=== PATIENT | female | born 1950 | race African-American/Black ===

== ENCOUNTER 2019-01-19 12:40 | Emergency (ER) | payer MEDICARE, SELFPAY ==
[~2019-01-19] VITALS: Ht 154.9 cm; Wt 135.6 kg
[~2019-01-19 12:40] MED LIST: ALBU2.5V8 INH; ALPR0.25 PO; ASPI325T8 PO; BUDE10.2 IH; ESOM40CA PO; GABA300C18 PO; INSU100I13 SQ; INSU100I27 SQ; INSU100V31 SQ; NAPR-683 PO
[2019-01-19] MEDS ORDERED: fentaNYL PF VIAL 100 MCG/2 ML VIAL IV ONE (13:15)
[2019-01-19] MEDS ORDERED: ONDANSETRON PF 4 MG/2 ML VIAL. IV ONE (13:15)
[2019-01-19] MEDS ORDERED: IV NORMAL SALINE 500ML BAG 500 ML IV ONE (13:15)
--- NOTE | 2019-01-19 13:21 | PHYS DOC ---
Past Medical History Past Medical History: Anxiety, Asthma, Depression, Diabetes-Type II, Kidney Stone, [place], Other Additional Past Medical Histor: paranoia, obesity, phobias, neuropathy Past Surgical History: Hysterectomy, Other Additional Past Surgical Histo: bilat knee cart. removal, cardiac stents Additional Information: 1 PACK/DAY Alcohol Use: None Drug Use: None Adult General Chief Complaint Chief Complaint: FLANK PAIN HPI HPI Patient is a 68 year old female who presents with complaining of right flank pain. Patient complaining of constant and sudden onset of right flank pain for the last 3 days that getting worse with movement. Patient rated her pain 10 over 10 and complaining of hematuria without urinary frequency and dysuria. Patient d enies fever and chills, nausea and vomiting, diarrhea and constipation, history of the same pain. Patient took [id number] Advil without improvement of her pain. Patient had history of kidney stone 1 while ago. Review of Systems Review of Systems Constitutional: Denies fever or chills [] Eyes: Denies change in visual acuity, redness, or eye pain [] HENT: Denies nasal congestion or sore throat [] Respiratory: Denies cough or shortness of breath [] Cardiovascular: No additional information not addressed in HPI [] GI: Denies abdominal pain, nausea, vomiting, bloody stools or diarrhea [] : Denies dysuria, reports flank pain and hematuria [] Musculoskeletal: Denies back pain or joint pain [] Integument: Denies rash or skin lesions [] Neurologic: Denies headache, focal weakness or sensory changes [] Endocrine: Denies polyuria or polydipsia [] All other systems were reviewed and found to be within normal limits, except as documented in this note. Current Medications Current Medications Current Medications Medications (Trade) Dose Ordered Sig/Rayne Start Time Stop Time Status Last Admin Dose Admin Ceftriaxone Sodium (Rocephin) 1 gm 1X ONCE 01/19/19 15:45 01/19/19 15:47 DC 01/19/19 15:56 1 GM Fentanyl Citrate (Fentanyl 2ml Vial) 50 mcg 1X ONCE 01/19/19 13:15 01/19/19 13:19 DC 01/19/19 15:18 50 MCG Lorazepam (Ativan) 1 mg 1X ONCE 01/19/19 14:30 01/19/19 14:31 DC 01/19/19 14:44 1 MG Ondansetron HCl (Zofran) 4 mg 1X ONCE 01/19/19 13:15 01/19/19 13:19 DC 01/19/19 15:16 4 MG Sodium Chloride 500 ml @ 500 mls/hr 1X ONCE 01/19/19 13:15 01/19/19 14:14 DC 01/19/19 15:20 500 MLS/HR Allergies Allergies Allergies Coded Allergies Type Severity Reaction Last Updated Verified BETH Inhibitors Allergy Severe throat swelling 06/22/16 Yes Penicillins Allergy Intermediate rash (per MD) 01/19/19 Yes Physical Exam Physical Exam Constitutional: Well developed, well nourished, mild distress, non-toxic appearance, morbidly obese. [] HENT: Normocephalic, atraumatic, oropharynx moist. Eyes: PERRLA, EOMI, conjunctiva normal, no discharge. [] Neck: Normal range of motion, no tenderness, supple, no stridor. [] Cardiovascular:Heart rate regular rhythm, no murmur [] Lungs & Thorax: Bilateral breath sounds clear to auscultation [] Abdomen: Bowel sounds normal, soft, no tenderness, no masses, no pulsatile masses. [] Skin: Warm, dry, no erythema, no rash. [] Back: No tenderness, no CVA tenderness. [] Extremities: No tenderness, no cyanosis, no clubbing, ROM intact, bilateral lower extremity 2+ edema. [] Neurologic: Alert and oriented X 3, normal motor function, normal sensory func tion, no focal deficits noted. [] Psychologic: Affect normal, judgement normal, mood normal. [] Current Patient Data Vital Signs Vital Signs Date Time Temp Pulse Resp B/P (MAP) Pulse Ox O2 Delivery O2 Flow Rate FiO2 01/19/19 15:58 72 20 145/64 (91) 97 Room Air 01/19/19 13:05 98.4 98.4 Lab Values Laboratory Tests Test 01/19/19 13:00 01/19/19 13:40 Urine Collection Type Void Urine Color Yellow Urine Clarity Clear Urine pH 6.0 Urine Specific [place] 1.010 Urine Protein Negative mg/dL (NEG-TRACE) Urine Glucose (UA) Negative mg/dL (NEG) Urine Ketones (Stick) Negative mg/dL (NEG) Urine Blood Moderate (NEG) Urine Nitrite Negative (NEG) Urine Bilirubin Negative (NEG) Urine Urobilinogen Dipstick 0.2 mg/dL (0.2 mg/dL) Urine Leukocyte Esterase Moderate (NEG) Urine RBC Occ /HPF (0-2) Urine WBC 11-20 /HPF (0-4) Urine Squamous Epithelial Cells Occ /LPF Urine Bacteria Many /HPF (0-FEW) White Blood Count 11.2 x10^3/uL (4.0-11.0) H Red Blood Count 4.58 x10^6/uL (3.50-5.40) Hemoglobin 12.4 g/dL (12.0-15.5) Hematocrit 38.6 % (36.0-47.0) Mean Corpuscular Volume 84 fL (79-100) Mean Corpuscular Hemoglobin 27 pg (25-35) Mean Corpuscular Hemoglobin Concent 32 g/dL (31-37) Red Cell Distribution Width 17.9 % (11.5-14.5) H Platelet Count 155 x10^3/uL (140-400) Neutrophils (%) (Auto) 64 % (31-73) Lymphocytes (%) (Auto) 26 % (24-48) Monocytes (%) (Auto) 6 % (0-9) Eosinophils (%) (Auto) 3 % (0-3) Basophils (%) (Auto) 1 % (0-3) Neutrophils # (Auto) 7.2 x10^3uL (1.8-7.7) Lymphocytes # (Auto) 2.9 x10^3/uL (1.0-4.8) Monocytes # (Auto) 0.7 x10^3/uL (0.0-1.1) Eosinophils # (Auto) 0.3 x10^3/uL (0.0-0.7) Basophils # (Auto) 0.1 x10^3/uL (0.0-0.2) Sodium Level 139 mmol/L (136-145) Potassium Level 3.8 mmol/L (3.5-5.1) Chloride Level 103 mmol/L (98-107) Carbon Dioxide Level 25 mmol/L (21-32) Anion Gap 11 (6-14) Blood Urea Nitrogen 9 mg/dL (7-20) Creatinine 0.7 mg/dL (0.6-1.0) Estimated GFR (Cockcroft-Gault) 100.4 BUN/Creatinine Ratio 13 (6-20) Glucose Level 131 mg/dL (70-99) H Calcium Level 9.2 mg/dL (8.5-10.1) Total Bilirubin 0.2 mg/dL (0.2-1.0) Aspartate Amino Transferase (AST) 13 U/L (15-37) L Alanine Aminotransferase (ALT) 9 U/L (14-59) L Alkaline Phosphatase 88 U/L (46-116) Total Protein 8.3 g/dL (6.4-8.2) H Albumin 3.3 g/dL (3.4-5.0) L Albumin/Globulin Ratio 0.7 (1.0-1.7) L Lipase 70 U/L (73-393) L Laboratory Tests 01/19/19 13:40 Laboratory Tests 01/19/19 13:40 EKG EKG [] Radiology/Procedures Radiology/Procedures [facility] [address] [place], [place] [id number] IMAGING REPORT Signed PATIENT: KATHI MIXON ACCOUNT: [id number] : 1950 LOCATION: ER AGE: 68 SEX: F EXAM STATUS: REG ER ORD. PHYSICIAN: SHEELA JOHANSEN MD REASON: right flank pain PROCEDURE: CT ABDOMEN PELVIS WO CONTRAST Examination: CT of the abdomen pelvis without contrast HISTORY: History of right flank pain COMPARISON: 06/22/2016 TECHNIQUE: Axial CT images of the abdomen pelvis were performed without contrast. sagittal reformats are performed Exposure: One or more of the following individualized dose reduction techniques were utilized for this examination: 1. Automated exposure control 2. Adjustment of the mA and/or kV according to patient size 3. Use of iterative reconstruction technique FINDINGS: Minimal bibasilar lung airspace opacities likely atelectasis No evidence of free air identified in the abdomen The evaluation of the solid organs is limited due to lack of IV contrast. The evaluation of bowel is limited due to lack of oral contrast. The visualized noncontrasted liver, spleen, adrenals grossly appears unremarkable. The gallbladder is mildly distended. The stomach is mildly distended. The visualized pancreas grossly appears unremarkable. The small bowel is nondilated. Feces and gas noted in the colon. Multiple colonic diverticulosis identified. The appendix is not evident Multiple intrarenal collecting system calculi identified in the left kidney with the largest measuring 9 mm. Probably punctate 3 mm identified distal calculus right kidney. No evidence of hydronephrosis or hydroureter identified. The urinary bladder is mildly distended. Moderate degenerative changes throughout the lumbar spine. IMPRESSION: 1. Bilateral nephrolithiasis. No hydronephrosis. 2. Colonic diverticulosis. Electronically signed by: Feliberto Bergeron MD (01/19/2019 3:25 PM) [place] [id number] DICTATED and SIGNED BY: FELIBERTO BERGERON MD DATE: 01/19/19 1525 Course & Med Decision Making Course & Med Decision Making Pertinent Labs and Imaging studies reviewed. (See chart for details) Evaluation of patient in ER showed 68-year-old female patient with complaining of right flank pain for 3 days. Patient had morbid obesity without CVA tenderness. Labs showed UTI. She had anxiety before having CT of abdomen and Ativan was given. CT of abdomen and pelvis showed nephrolithiasis without ureterolithiasis. Patient treated with IV fluid, fentanyl, Ativan with improvement of her condition. I've spoken with the patient and/or caregivers. I've explained the patient's condition, diagnosis and treatment plan based on information available to me at this time. I've answered the patient's and/or caregivers questions and addressed any concerns. The patient and/or caregivers have a good understanding the patient's diagnosis, condition and treatment plan as can be expected at this point. Vital signs have been stabilized. The patient's condition is stable for discharge from the emergency department. The patient will pursue further outpatient evaluation with her primary care provider or other designated consulting physician as outlined in the discharge instructions. Patient and/or caregivers are agreeable to this plan of care and follow-up instructions have been explained in detail. The patient and/or careg sharee have received these instructions in written format and expressed understanding of these discharge instructions. The patient and her caregivers are aware that if any significant change in condition or worsening of symptoms should prompt him to immediately return to this of the closest emergency department. If an emergent department is not readily available I would encourage him to call 911. Debra Disclaimer Debra Disclaimer This electronic medical record was generated, in whole or in part, using a voice recognition dictation system. Departure Departure Impression: Primary Impression: Urinary tract infection Additional Impressions: Right flank pain Nephrolithiasis Morbid obesity with BMI of 50.0-59.9, adult Anxiety Disposition: 01 HOME, SELF-CARE Condition: IMPROVED Referrals: ARIAN GHOSH MD (PCP) Patient Instructions: Flank Pain, Urinary Tract Infection Additional Instructions: Drink plenty of liquids Follow-up with your primary care physician in 3-5 days Return to ER if not getting better Scripts Ciprofloxacin Hcl (CIPRO) 250 Mg Tablet 1 TAB PO BID for infection, #14 TAB Prov: SHEELA JOHANSEN MD 01/19/19 Insulin Aspart (NOVOLOG) 100 Unit/1 Ml Vial 25 UNIT SQ TIDAC, #1 VIAL Prov: SHEELA JOHANSEN MD 01/19/19 Hydrocodone/Apap 5-325 (NORCO 5-325 TABLET) 1 Each Tablet 1 TAB PO PRN Q6HRS PRN for PAIN, #10 TAB 0 Refills Prov: SHEELA JOHANSEN MD 01/19/19 Problem Qualifiers Primary Impression: Urinary tract infection Urinary tract infection type: acute cystitis Hematuria presence: without hematuria Qualified Codes: N30.00 - Acute cystitis without hematuria SHEELA JOHANSEN MD January 19, 2019 13:21
[2019-01-19 13:22] LABS: BILIRUBIN,URINE NEGATIVE (NEG); CLARITY,URINE CLEAR; COLOR,URINE YELLOW; NITRITE,URINE NEGATIVE (NEG); PROTEIN,URINE NEGATIVE (NEG-TRACE); UROBILINOGEN,URINE 0.2 mg/dL (0.2 mg/dL)
[2019-01-19 13:31] LABS: RBC,URINE OCC /HPF (0-2)
[2019-01-19 13:32] LABS: BACTERIA,URINE MANY /HPF (0-FEW); SQUAMOUS EPITHELIAL CELL,UR OCC /LPF
[2019-01-19 13:48] LABS: BASO # 0.1 x10^3/uL (0.0-0.2); BASO % 1 % (0-3); EOS # 0.3 x10^3/uL (0.0-0.7); EOS % 3 % (0-3); HEMATOCRIT 38.6 % (36.0-47.0); HEMOGLOBIN 12.4 g/dL (12.0-15.5); LYMPH # 2.9 x10^3/uL (1.0-4.8); LYMPH % 26 % (24-48); MEAN CORPUSCULAR HEMOGLOBIN 27 pg (25-35); MEAN CORPUSCULAR HGB CONC 32 g/dL (31-37); MEAN CORPUSCULAR VOLUME 84 fL (79-100); MONO # 0.7 x10^3/uL (0.0-1.1); MONO % 6 % (0-9); NEUT # 7.2 x10^3uL (1.8-7.7); NEUT % 64 % (31-73); PLATELET COUNT 155 x10^3/uL (140-400); RED BLOOD COUNT 4.58 x10^6/uL (3.50-5.40); RED CELL DISTRIBUTION WIDTH 17.9 % (11.5-14.5); WHITE BLOOD COUNT 11.2 x10^3/uL (4.0-11.0)
[2019-01-19 14:03] LABS: CALCIUM 9.2 mg/dL (8.5-10.1); CREATININE 0.7 mg/dL (0.6-1.0); GFR 100.4; POTASSIUM 3.8 mmol/L (3.5-5.1)
[2019-01-19 14:09] LABS: ALBUMIN 3.3 g/dL (3.4-5.0); ALBUMIN/GLOBULIN RATIO 0.7 (1.0-1.7); TOTAL BILIRUBIN 0.2 mg/dL (0.2-1.0); TOTAL PROTEIN 8.3 g/dL (6.4-8.2)
--- NOTE | 2019-01-19 15:28 | RAD ---
Examination: CT of the abdomen pelvis without contrast HISTORY: History of right flank pain COMPARISON: 06/22/2016 TECHNIQUE: Axial CT images of the abdomen pelvis were performed without contrast. sagittal reformats are performed Exposure: One or more of the following individualized dose reduction techniques were utilized for this examination: 1. Automated exposure control 2. Adjustment of the mA and/or kV according to patient size 3. Use of iterative reconstruction technique FINDINGS: Minimal bibasilar lung airspace opacities likely atelectasis No evidence of free air identified in the abdomen The evaluation of the solid organs is limited due to lack of IV contrast. The evaluation of bowel is limited due to lack of oral contrast. The visualized noncontrasted liver, spleen, adrenals grossly appears unremarkable. The gallbladder is mildly distended. The stomach is mildly distended. The visualized pancreas grossly appears unremarkable. The small bowel is nondilated. Feces and gas noted in the colon. Multiple colonic diverticulosis identified. The appendix is not evident Multiple intrarenal collecting system calculi identified in the left kidney with the largest measuring 9 mm. Probably punctate 3 mm identified distal calculus right kidney. No evidence of hydronephrosis or hydroureter identified. The urinary bladder is mildly distended. Moderate degenerative changes throughout the lumbar spine. IMPRESSION: 1. Bilateral nephrolithiasis. No hydronephrosis. 2. Colonic diverticulosis. Electronically signed by: Feliberto Beregron MD (01/19/2019 3:25 PM) [place] [id number]
[2019-01-19] MEDS ORDERED: cefTRIAXone IV Push 1 GM VIAL. IVP ONE (15:45)
[2019-01-19 15:58] VITALS: BP 145/64
[2019-01-19] MEDS ORDERED: HYDR-3164 PO (16:07)
[2019-01-19] MEDS ORDERED: INSU100V31 SQ (16:13)
[2019-01-19] MEDS ORDERED: CIPR250T30 PO (16:13)
== END 2019-01-19 16:43 | disposition home or self-care (01) ==
LOC: ER 12:40
DX: N30.00 Acute cystitis without hematuria (principal); N20.0 Calculus of kidney; K57.30 Diverticulosis of large intestine without perforation or abscess without bleeding; F41.9 Anxiety disorder, unspecified; E66.01 Morbid (severe) obesity due to excess calories; Z68.43 Body mass index [BMI] 50.0-59.9, adult; J45.909 Unspecified asthma, uncomplicated; I25.2 Old myocardial infarction; E11.40 Type 2 diabetes mellitus with diabetic neuropathy, unspecified; Z87.442 Personal history of urinary calculi; Z90.710 Acquired absence of both cervix and uterus; Z95.5 Presence of coronary angioplasty implant and graft; F17.200 Nicotine dependence, unspecified, uncomplicated; Z88.0 Allergy status to penicillin; Z88.8 Allergy status to other drugs, medicaments and biological substances
CPT/HCPCS: 36415; 74176; 80053; 81001; 83690; 85025; 87086; 96374; 96375; 99285; J0696; J2060; J2405; J3010; J7040

== ENCOUNTER 2019-02-09 22:35 | Emergency (ER) | payer MEDICARE ==
[~2019-02-09] VITALS: Ht 154.9 cm; Wt 140.6 kg
[~2019-02-09 22:35] MED LIST changes: +CIPR250T30 PO; +HYDR-3164 PO
--- NOTE | 2019-02-09 23:27 | PHYS DOC ---
Past Medical History Past Medical History: Anxiety, Asthma, Depression, Diabetes-Type II, Kidney Stone, [place], Other Additional Past Medical Histor: paranoia, obesity, phobias, neuropathy (VASHTI FARIAS) Past Surgical History: Hysterectomy, Other Additional Past Surgical Histo: bilat knee cart. removal, cardiac stents (VASHTI FARIAS) Alcohol Use: None Drug Use: None (VASHTI FARIAS) Adult General Chief Complaint Chief Complaint: BACK PAIN - NO INJURY HPI HPI Patient is a 68 year old F who comes to ER today with upper L back pain that she states started today. She denies any known injury. She states it is a deep ache and she thought it might be gas but she has "pooped and farted" without relief. Pt does have hx of CAD with prior stents. She denies any chest pain or SOB. Of note, pt did tell nurse that the pain started when she was sitting on the couch and she leaned forward to reach something and felt a "pull" in her back. (VASHTI FARIAS) Review of Systems Review of Systems Constitutional: Denies fever or chills Respiratory: Denies cough or shortness of breath Cardiovascular: Denies chest pain GI: Denies abdominal pain, nausea, vomiting, bloody stools or diarrhea. Feels "gassy". : Denies dysuria or hematuria Musculoskeletal: Reports back pain. Integument: Denies rash or skin lesions Neurologic: Denies headache, focal weakness or sensory changes Endocrine: Denies polyuria or polydipsia All other systems were reviewed and found to be within normal limits, except as documented in this note. (VASHTI FARIAS) Current Medications Current Medications Current Medications Medications (Trade) Dose Ordered Sig/Rayne Start Time Stop Time Status Last Admin Dose Admin Morphine Sulfate (Morphine Sulfate) 4 mg 1X ONCE 02/10/19 01:00 02/10/19 01:01 DC 02/10/19 01:01 4 MG Ondansetron HCl (Zofran) 4 mg 1X ONCE 02/09/19 23:30 02/09/19 23:31 DC 02/10/19 00:04 4 MG (AVILA MENDOZA MD) Allergies Allergies Allergies Coded Allergies Type Severity Reaction Last Updated Verified BETH Inhibitors Allergy Severe throat swelling 06/22/16 Yes Penicillins Allergy Intermediate rash (per ) 01/19/19 Yes (AVILA MENDOZA MD) Physical Exam Physical Exam Constitutional: Well developed, well nourished, no acute distress, non-toxic appearance. Appears uncomfortable. HENT: Normocephalic, atraumatic Neck: Normal range of motion, no tenderness, supple, no stridor. Cardiovascular:Heart rate regular rhythm, no murmur Lungs & Thorax: Bilateral breath sounds clear to auscultation Abdomen: Bowel sounds normal, soft, no tenderness, no masses, no pulsatile masses. Skin: Warm, dry, no erythema, no rash. Back: Pt with left thoracic paraspinous pain with palpation. No vertebral point tenderness. No spasm noted. Extremities: No tenderness, no cyanosis, no clubbing, ROM intact, no edema. Neurologic: Alert and oriented X 3, normal motor function, normal sensory function, no focal deficits noted. Psychologic: Affect normal, judgement normal, mood normal. (VASHTI FARIAS) Current Patient Data Vital Signs Vital Signs Date Time Temp Pulse Resp B/P (MAP) Pulse Ox O2 Delivery O2 Flow Rate FiO2 02/10/19 00:40 80 20 207/78 (121) 98 Room Air 02/09/19 22:40 98.1 98.1 (AVILA MENDOZA MD) Lab Values Laboratory Tests Test 02/09/19 23:36 02/10/19 00:00 Urine Collection Type Unknown Urine Color Yellow Urine Clarity Clear Urine pH 7.0 Urine Specific [place] 1.015 Urine Protein Negative mg/dL (NEG-TRACE) Urine Glucose (UA) Negative mg/dL (NEG) Urine Ketones (Stick) Negative mg/dL (NEG) Urine Blood Negative (NEG) Urine Nitrite Negative (NEG) Urine Bilirubin Negative (NEG) Urine Urobilinogen Dipstick 1.0 mg/dL (0.2 mg/dL) Urine Leukocyte Esterase Negative (NEG) Urine RBC 0 /HPF (0-2) Urine WBC Occ /HPF (0-4) Urine Squamous Epithelial Cells Few /LPF Urine Bacteria Many /HPF (0-FEW) White Blood Count 9.0 x10^3/uL (4.0-11.0) Red Blood Count 4.36 x10^6/uL (3.50-5.40) Hemoglobin 12.1 g/dL (12.0-15.5) Hematocrit 36.6 % (36.0-47.0) Mean Corpuscular Volume 84 fL (79-100) Mean Corpuscular Hemoglobin 28 pg (25-35) Mean Corpuscular Hemoglobin Concent 33 g/dL (31-37) Red Cell Distribution Width 18.1 % (11.5-14.5) H Platelet Count 167 x10^3/uL (140-400) Neutrophils (%) (Auto) 59 % (31-73) Lymphocytes (%) (Auto) 29 % (24-48) Monocytes (%) (Auto) 7 % (0-9) Eosinophils (%) (Auto) 3 % (0-3) Basophils (%) (Auto) 1 % (0-3) Neutrophils # (Auto) 5.3 x10^3uL (1.8-7.7) Lymphocytes # (Auto) 2.6 x10^3/uL (1.0-4.8) Monocytes # (Auto) 0.6 x10^3/uL (0.0-1.1) Eosinophils # (Auto) 0.3 x10^3/uL (0.0-0.7) Basophils # (Auto) 0.1 x10^3/uL (0.0-0.2) Prothrombin Time 13.0 SEC (11.7-14.0) Prothrombin Time INR 1.0 (0.8-1.1) PTT 29 SEC (24-38) Sodium Level 142 mmol/L (136-145) Potassium Level 3.6 mmol/L (3.5-5.1) Chloride Level 103 mmol/L (98-107) Carbon Dioxide Level 29 mmol/L (21-32) Anion Gap 10 (6-14) Blood Urea Nitrogen 10 mg/dL (7-20) Creatinine 0.7 mg/dL (0.6-1.0) Estimated GFR (Cockcroft-Gault) 100.4 BUN/Creatinine Ratio 14 (6-20) Glucose Level 127 mg/dL (70-99) H Calcium Level 9.2 mg/dL (8.5-10.1) Total Bilirubin 0.1 mg/dL (0.2-1.0) L Aspartate Amino Transferase (AST) 12 U/L (15-37) L Alanine Aminotransferase (ALT) 13 U/L (14-59) L Alkaline Phosphatase 92 U/L (46-116) Creatine Kinase 87 U/L (26-192) Creatine Kinase MB (Mass) 1.4 ng/mL (0.0-3.6) Creatine Kinase MB Relative Index 1.6 % (0-4) Troponin I Quantitative < 0.017 ng/mL (0.000-0.055) HM-Nvd-V-Type Natriuretic Peptide 384 pg/mL (0-124) H Total Protein 8.2 g/dL (6.4-8.2) Albumin 3.3 g/dL (3.4-5.0) L Albumin/Globulin Ratio 0.7 (1.0-1.7) L Lipase 682 U/L (73-393) H Laboratory Tests 02/10/19 00:00 Laboratory Tests 02/10/19 00:00 Microbiology 02/10/19 Urine Culture - Final, Complete 02/10/19 Urine Culture Result 1 (LIGIA) - Final, Complete 02/10/19 Antimicrobic Susceptibility - Final, Complete (AVILA MENDOZA MD) Lab Values Laboratory Tests Test 02/09/19 23:36 02/10/19 00:00 Urine Collection Type Unknown Urine Color Yellow Urine Clarity Clear Urine pH 7.0 Urine Specific [place] 1.015 Urine Protein Negative mg/dL (NEG-TRACE) Urine Glucose (UA) Negative mg/dL (NEG) Urine Ketones (Stick) Negative mg/dL (NEG) Urine Blood Negative (NEG) Urine Nitrite Negative (NEG) Urine Bilirubin Negative (NEG) Urine Urobilinogen Dipstick 1.0 mg/dL (0.2 mg/dL) Urine Leukocyte Esterase Negative (NEG) Urine RBC 0 /HPF (0-2) Urine WBC Occ /HPF (0-4) Urine Squamous Epithelial Cells Few /LPF Urine Bacteria Many /HPF (0-FEW) White Blood Count 9.0 x10^3/uL (4.0-11.0) Red Blood Count 4.36 x10^6/uL (3.50-5.40) Hemoglobin 12.1 g/dL (12.0-15.5) Hematocrit 36.6 % (36.0-47.0) Mean Corpuscular Volume 84 fL (79-100) Mean Corpuscular Hemoglobin 28 pg (25-35) Mean Corpuscular Hemoglobin Concent 33 g/dL (31-37) Red Cell Distribution Width 18.1 % (11.5-14.5) H Platelet Count 167 x10^3/uL (140-400) Neutrophils (%) (Auto) 59 % (31-73) Lymphocytes (%) (Auto) 29 % (24-48) Monocytes (%) (Auto) 7 % (0-9) Eosinophils (%) (Auto) 3 % (0-3) Basophils (%) (Auto) 1 % (0-3) Neutrophils # (Auto) 5.3 x10^3uL (1.8-7.7) Lymphocytes # (Auto) 2.6 x10^3/uL (1.0-4.8) Monocytes # (Auto) 0.6 x10^3/uL (0.0-1.1) Eosinophils # (Auto) 0.3 x10^3/uL (0.0-0.7) Basophils # (Auto) 0.1 x10^3/uL (0.0-0.2) Prothrombin Time 13.0 SEC (11.7-14.0) Prothrombin Time INR 1.0 (0.8-1.1) PTT 29 SEC (24-38) Sodium Level 142 mmol/L (136-145) Potassium Level 3.6 mmol/L (3.5-5.1) Chloride Level 103 mmol/L (98-107) Carbon Dioxide Level 29 mmol/L (21-32) Anion Gap 10 (6-14) Blood Urea Nitrogen 10 mg/dL (7-20) Creatinine 0.7 mg/dL (0.6-1.0) Estimated GFR (Cockcroft-Gault) 100.4 BUN/Creatinine Ratio 14 (6-20) Glucose Level 127 mg/dL (70-99) H Calcium Level 9.2 mg/dL (8.5-10.1) Total Bilirubin 0.1 mg/dL (0.2-1.0) L Aspartate Amino Transferase (AST) 12 U/L (15-37) L Alanine Aminotransferase (ALT) 13 U/L (14-59) L Alkaline Phosphatase 92 U/L (46-116) Creatine Kinase 87 U/L (26-192) Creatine Kinase MB (Mass) 1.4 ng/mL (0.0-3.6) Creatine Kinase MB Relative Index 1.6 % (0-4) Troponin I Quantitative < 0.017 ng/mL (0.000-0.055) BU-Bal-P-Type Natriuretic Peptide 384 pg/mL (0-124) H Total Protein 8.2 g/dL (6.4-8.2) Albumin 3.3 g/dL (3.4-5.0) L Albumin/Globulin Ratio 0.7 (1.0-1.7) L Lipase 682 U/L (73-393) H Laboratory Tests 02/10/19 00:00 Laboratory Tests 02/10/19 00:00 (VASHTI FARIAS) EKG EKG EKG reviewed by Dr. Mendoza No acute findings, No STEMI (VASHTI FARIAS) Radiology/Procedures Radiology/Procedures Possible infiltrates (VASHTI FARIAS) Course & Med Decision Making Course & Med Decision Making Pertinent Labs and Imaging studies reviewed. (See chart for details) Pt feeling better while in ER. Cardiac tests reassuring. Discussed the Xray findings of possible B infiltrates. Pt denies cough or SOB and is afebrile without Leukocytosis so do not think she has pneumonia. Pt does have mildly elevated lipase. She denies any hx of pancreatitis. The pain in her back could be from pancreatitis but unusual to not have epigastric abd pain. She does feel gassy and reports some acid reflux. Discussed that with no vomiting, we could attempt to treat at home since mild but that since the etiology is not entirely clear she should call and f/u with PCP closely. Pt to return if symptoms worsen at anytime. (VASHTI FARIAS) Course & Med Decision Making Staff Physician Addendum: I was working in the ER during the course of this patient's visit. I was available for consultation as needed, but I was not directly involved in the care of this patient. (AVILA MENDOZA MD) Dragon Disclaimer Dragon Disclaimer This electronic medical record was generated, in whole or in part, using a voice recognition dictation system. (VASHTI FARIAS) Departure Departure Impression: Primary Impression: Back pain Additional Impression: Pancreatitis Disposition: 01 HOME, SELF-CARE Condition: IMPROVED Referrals: ARIAN GHOSH MD (PCP) Patient Instructions: Acute Pancreatitis, [id number]-Gbyt Additional Instructions: Sully diet, clear liquids and then advance Scripts Hydrocodone/Apap 5-325 (NORCO 5-325 TABLET) 1 Each Tablet 1-2 TAB PO Q4-6HRS PRN for PAIN, #15 TAB Prov: VASHTI FARIAS 02/10/19 Ondansetron Hcl (ZOFRAN) 4 Mg Tablet 1 TAB PO Q6HRS PRN for NAUSEA/VOMITING, #12 TAB Prov: VASHTI FARIAS 02/10/19 Problem Qualifiers VASHTI FARIAS Feb 09, 2019 23:27 AVILA MENDOZA MD Feb 15, 2019 11:46
[2019-02-09] MEDS ORDERED: ONDANSETRON PF 4 MG/2 ML VIAL. IV ONE (23:30)
[2019-02-09] MEDS ORDERED: MORPHINE SULFATE 4 MG/ML VIAL. IV ONE (23:30)
--- NOTE | 2019-02-09 23:37 | RAD ---
EXAM: Abdomen acute complete. HISTORY: Pain. COMPARISON: CT dated 01/19/2019. FINDINGS: Frontal upright and supine views of the abdomen and a frontal view of the chest are obtained. There is diffuse increased interstitial opacity. There is no consolidation, pleural effusion or pneumothorax. There is a prominent cardiac silhouette. There is gas and stool within the colon. No abnormally dilated air-filled loop of bowel seen. There is no free air. IMPRESSION: 1. Diffuse increased interstitial opacity throughout both lungs, suggesting diffuse interstitial infiltrate or chronic interstitial changes. 2. Nonobstructive bowel gas pattern. Electronically signed by: Kami Cordero MD (02/09/2019 11:34 PM) [facility]
[2019-02-10 00:02] LABS: BILIRUBIN,URINE NEGATIVE (NEG); CLARITY,URINE CLEAR; COLOR,URINE YELLOW; NITRITE,URINE NEGATIVE (NEG); PROTEIN,URINE NEGATIVE (NEG-TRACE)
[2019-02-10 00:08] LABS: BACTERIA,URINE MANY /HPF (0-FEW); RBC,URINE 0 /HPF (0-2); SQUAMOUS EPITHELIAL CELL,UR FEW /LPF; WBC,URINE OCC /HPF (0-4)
[2019-02-10 00:09] LABS: BASO # 0.1 x10^3/uL (0.0-0.2); BASO % 1 % (0-3); EOS # 0.3 x10^3/uL (0.0-0.7); EOS % 3 % (0-3); HEMATOCRIT 36.6 % (36.0-47.0); HEMOGLOBIN 12.1 g/dL (12.0-15.5); LYMPH # 2.6 x10^3/uL (1.0-4.8); LYMPH % 29 % (24-48); MEAN CORPUSCULAR HEMOGLOBIN 28 pg (25-35); MEAN CORPUSCULAR HGB CONC 33 g/dL (31-37); MEAN CORPUSCULAR VOLUME 84 fL (79-100); MONO # 0.6 x10^3/uL (0.0-1.1); MONO % 7 % (0-9); NEUT # 5.3 x10^3uL (1.8-7.7); NEUT % 59 % (31-73); PLATELET COUNT 167 x10^3/uL (140-400); RED BLOOD COUNT 4.36 x10^6/uL (3.50-5.40); RED CELL DISTRIBUTION WIDTH 18.1 % (11.5-14.5)
[2019-02-10 00:30] LABS: CALCIUM 9.2 mg/dL (8.5-10.1); CREATININE 0.7 mg/dL (0.6-1.0); GFR 100.4; POTASSIUM 3.6 mmol/L (3.5-5.1)
[2019-02-10 00:35] LABS: ALBUMIN 3.3 g/dL (3.4-5.0); ALBUMIN/GLOBULIN RATIO 0.7 (1.0-1.7); TOTAL BILIRUBIN 0.1 mg/dL (0.2-1.0); TOTAL PROTEIN 8.2 g/dL (6.4-8.2)
[2019-02-10 00:40] VITALS: BP 207/78
[2019-02-10] MEDS ORDERED: ONDA4TAB7 PO (00:48)
[2019-02-10] MEDS ORDERED: HYDR-3164 PO (00:48)
[2019-02-10] MEDS ORDERED: MORPHINE SULFATE 4 MG/ML VIAL. IV ONE (01:00)
--- NOTE | 2019-02-10 05:55 | EKG ---
[facility] [address] [place] [address] Test Date: 2019-02-09 Test Time: 23:38:36 Pat Name: KATHI MIXON Department: Room: Gender: F Maintenance Foreman: : 1950 Requested By: VASHTI FARIAS Order Number: [id number] Reading MD: Measurements Intervals [place] Rate: 80 P: 38 NC: 178 QRS: 0 QRSD: 90 T: 32 QT: 380 QTc: 441 Interpretive Statements SINUS RHYTHM LEFTWARD AXIS R-S TRANSITION ZONE IN V LEADS DISPLACED TO THE LEFT NON SPECIFIC T ABNORMALITY BORDERLINE ECG No previous ECG available for comparison
--- NOTE | 2019-02-13 14:24 | VNOTE ---
CALL BACK NOTE CALL BACK Microbiology 02/10/19 Urine Culture - Final, Complete 02/10/19 Urine Culture Result 1 (LIGIA) - Final, Complete 02/10/19 Antimicrobic Susceptibility - Final, Complete Called patient regarding UA, she was not home. Left [facility] for family to call us back RAHEEL LAGOS APRN Feb 13, 2019 14:24
== END 2019-02-10 01:06 | disposition home or self-care (01) ==
LOC: ER 22:35
DX: K85.90 Acute pancreatitis without necrosis or infection, unspecified (principal); M54.6 Pain in thoracic spine; J45.909 Unspecified asthma, uncomplicated; I25.2 Old myocardial infarction; E11.40 Type 2 diabetes mellitus with diabetic neuropathy, unspecified; Z87.442 Personal history of urinary calculi; Z95.5 Presence of coronary angioplasty implant and graft; Z90.710 Acquired absence of both cervix and uterus; E66.9 Obesity, unspecified; Z68.43 Body mass index [BMI] 50.0-59.9, adult; Z88.0 Allergy status to penicillin; Z88.8 Allergy status to other drugs, medicaments and biological substances
CPT/HCPCS: 36415; 74022; 80053; 81001; 82553; 83690; 83880; 84484; 85025; 85610; 85730; 87086; 93005; 96374; 96375; 96376; 99285; J2270; J2405; 87186

== ENCOUNTER 2020-07-13 17:26 | Emergency (ER) | payer MEDICARE ==
[~2020-07-13] VITALS: Ht 154.9 cm; Wt 139.0 kg
[~2020-07-13 17:26] MED LIST changes: +ONDA4TAB7 PO
[2020-07-13] MEDS ORDERED: methylPREDNISolone SOD SUCC PF 125 MG/2 ML VIAL. IV ONE (18:15)
--- NOTE | 2020-07-13 18:15 | PHYS DOC ---
Past Medical History Past Medical History: Anxiety, Asthma, Depression, Diabetes-Type II, Kidney Stone, [place], Other Additional Past Medical Histor: paranoia, obesity, phobias, neuropathy Past Surgical History: Hysterectomy, Other Additional Past Surgical Histo: bilat knee cart. removal, cardiac stents Smoking Status: Current Every Day Smoker Alcohol Use: None Drug Use: None General Adult EDM: Chief Complaint: COUGH HPI: HPI: Patient is a 70 year old female who presents with shortness of air, cough, loss of appetite, nasal congestion and fever x3 weeks. Patient is very paranoid and is questioning plan of care. She states she just has a cold he does understand that she is to be tested for Covid. She states that she did not know that Covid caused pneumonia. She states that she has been trying to stay away from other people. Patient denies chest pain, taste, loss of smell, headache, dizziness, new numbness or tingling, no swelling, vision changes, pain with breathing. Patient has a history of paranoia, phobias, neuropathy, diabetes, [place], cardiac stents, kidney stone, asthma, smoker, anxiety, depression. Denies any pain at this time. Review of Systems: Review of Systems: Constitutional: + fever or chills. [] Eyes: Denies change in visual acuity. [] HENT: + nasal congestion or denies sore throat. [] Respiratory: + cough or +shortness of breath. [] Cardiovascular: Denies chest pain or edema. [] GI: Denies abdominal pain, nausea, vomiting, bloody stools or diarrhea. + Lack of appetite [] : Denies dysuria. [] Musculoskeletal: Denies back pain or joint pain. [] Integument: Denies rash. [] Neurologic: Denies headache, focal weakness or sensory changes. [] Endocrine: Denies polyuria or polydipsia. [] Lymphatic: Denies swollen glands. [] Psychiatric: Denies depression or anxiety. [] Heart Score: Risk Factors: Risk Factors: DM, Current or recent (<one month) smoker, HTN, HLP, family history of CAD, obesity. Risk Scores: Score 0 - 3: 2.5% MACE over next 6 weeks - Discharge Home Score 4 - 6: 20.3% MACE over next 6 weeks - Admit for Clinical Observation Score 7 - 10: 72.7% MACE over next 6 weeks - Early Invasive Strategies Current Medications: Current Medications Medications (Trade) Dose Ordered Sig/Rayne Start Time Stop Time Status Last Admin Dose Admin Methylprednisolone Sodium Succinate (SOLU-Medrol 125MG VIAL) 125 mg 1X ONCE 07/13/20 18:15 07/13/20 18:16 UNV Allergies: Allergies: Allergies Coded Allergies Type Severity Reaction Last Updated Verified BETH Inhibitors Allergy Severe throat swelling 06/22/16 Yes Penicillins Allergy Intermediate rash (per MD) 01/19/19 Yes Physical Exam: PE: Constitutional: Well developed, well nourished, no acute distress, non-toxic appearance. [] HENT: Normocephalic, atraumatic, bilateral external ears normal, oropharynx moist, no oral exudates, nose normal. [] Eyes: PERRLA, EOMI, conjunctiva normal, no discharge. [] Neck: Normal range of motion, no tenderness, supple, no stridor. [] Cardiovascular:Heart rate regular rhythm, no murmur [] Lungs & Thorax: Bilateral upper breath sounds clear and lower coarse to auscultation [] Abdomen: Bowel sounds normal, soft, no tenderness, no masses, no pulsatile masses. [] Skin: Warm, dry, no erythema, no rash. [] Back: No tenderness, no CVA tenderness. [] Extremities: No tenderness, no cyanosis, no clubbing, ROM intact, bilateral lower 2+ edema. [] Neurologic: Alert and oriented X 3, normal motor function, normal sensory function, no focal deficits noted. [] Psychologic: Affect normal, judgement normal, mood normal. [] EKG: EK AND READ BY BY DR ALVARADO SINUS RHYTHM AND NO STEMI Radiology/Procedures: Radiology/Procedures: [] Impression: [facility] [address] [place], [place] [id number] IMAGING REPORT Signed PATIENT: KATHI MIXONCOUNT: [id number] : 1950 LOCATION: ER AGE: 70 SEX: F EXAM STATUS: REG ER ORD. PHYSICIAN: RAVEN DUMONT APRN REASON: soa, cough PROCEDURE: PORTABLE CHEST 1V EXAM: CHEST 1 VIEW History: Shortness of breath, cough COMPARISON: 02/09/2019 TECHNIQUE: Single portable radiograph of the chest FINDINGS: The cardiac silhouette is unremarkable. Mild prominent bilateral interstitial lung markings. Mild prominent bilateral interstitial lung markings likely mild congestive changes or interstitial infiltrates. IMPRESSION: Mild prominent bilateral interstitial lung markings likely mild congestive changes or interstitial infiltrates. Electronically signed by: Fleiberto Bergeron MD (07/13/2020 8:12 PM) [id number] DICTATED and SIGNED BY: FELIBERTO BERGERON MD DATE: 07/13/202011 Course & Med Decision Making: Course & Med Decision Making Pertinent Labs and Imaging studies reviewed. (See chart for details) COVID-19 CRITERIA: The patient was evaluated during the global COVID-19 pandemic, and that diagnosis was suspected/considered upon their initial presentation. Their evaluation, treatment and testing was consistent with current guidelines for patients who present with complaints or symptoms that may be related to COVID-19. See HPI. Patient has bilateral lower extremity 2+ swelling. Lungs are clear in upper lobes but coarse sounding in lower lobes bilaterally. Abdomen soft and nontender. Patient speaks in full complete sentences. Alert and oriented x4. Skin pink warm and dry. 96% on room air. Patient is not hypoxic. Chest x-ray shows bilateral lower infiltrates. She will be sent home on azithromycin, Medrol Dosepak, ProAir inhaler. I spoke to Dr. Alvarado about this patient and concerning the care plan and he agrees. [] Liamon Disclaimer: Dragon Disclaimer: This electronic medical record was generated, in whole or in part, using a voice recognition dictation system. COVID-19 Patient Risks: Age 65 or older: Yes Sign of co-morbidity: Yes Exp to person + for COVID: No Exp to PUI: No Travel from affected area: No Lower respiratory symptoms: Yes Fever: Yes Other: Yes (lack of appetite, nasal congestion) PPE Use: Full PPE with N95 mask or PAPR: Yes Departure Departure Impression: Primary Impression: Person under investigation for COVID-19 Additional Impression: Pneumonia Qualified Codes: J18.9 - Pneumonia, unspecified organism Disposition: 09 ADMITTED INPT THIS HOSP Admitting Physician: [facility] Condition: STABLE Referrals: ARIAN GHOSH MD (PCP) Patient Instructions: Pneumonia, Adult Additional Instructions: Take medications as prescribed. Drink plenty of fluids. Take Tylenol or ibuprofen for any kind of fever or body aches. If you begin having severe shortness of breath return to the emergency room. You have been tested for or diagnosed with COVID-19. It is an infection caused by a new type of coronavirus. COVID-19 will cause cold-like or mild flu symptoms in most. It can cause more severe symptoms like problems breathing in some. There is no treatment for COVID-19. The body will clear the infection over time. Self-care will help to ease discomfort. Steps to Take: Self-Care Rest as needed. Healthy habits may help you feel better. Steps include: Choose healthy foods including fruits and vegetables. Drink water throughout the day. Get plenty of sleep each night. If you smoke, try to quit. It may ease breathing. Avoid alcohol. Keep Others Healthy The virus can spread to others. Droplets are released every time you sneeze or cough. The droplets can get into the mouth, nose, or eyes of people near you and lead to infection. To lower the chances of spreading COVID-19 to others: Stay at home until your doctor has said it is safe to leave. If you tested positive this will mean staying isolated until both of the following are true: At least 7 days have passed since the start of illness. You are free of fever for at least 72 hours without the use of medicine. During this time: - Avoid public areas, events, or transportation. Do not return to work or school until your doctor has said it is safe to do so. - Call ahead if you need to go to a medical center. Let them know you may have COVID-19. It will help them guide you where to go. They may also ask you to wear a facemask when you come to the office. - If you call for emergency medical services, let them know you may have COVID- 19. While at home: - Try to avoid close contact with others. Stay about 6 feet away. - If possible, spend most of your time in a separate room from others. - Use a face mask if you will be in close contact with others such as sharing a room or vehicle. - Have someone wipe down common surfaces in the home. Use household personal property appraiser every day on areas like doorknobs, counters, or sinks. - Cough or sneeze into a tissue. Throw the tissue away right after use. If a tissue is not available, cough or sneeze into your elbow. - Wash your hands often. Wash them after sneezing or coughing. Use soap and water and wash for at least 20 seconds. Alcohol based hand pan cleaner can be used if soap and water is not available. - Do not prepare food for others. Avoid sharing personal items like forks, spoons, or toothbrushes. - Avoid close contact with pets while you are sick. There is no evidence of the virus passing to pets. This is a safety step until more is known about this virus. Isolation can be frustrating. Social interaction can help. Keep in touch with friends and family through phone and tech options. You can still interact with others in your home, just keep a safe distance of about 6 feet. Follow-up: Your doctors office will check in with you to see if there are any changes in your health. You may be asked to keep track of symptoms to share with them. They will also let you know when you are clear to be in public again. Problems to Look Out For: Contact your doctor if your recovery is not going as you expect. Get emergency care if you have problems such as: - Trouble breathing - Nonstop chest pain or pressure - Changes in awareness, confusion, or problems waking - Lips or face have bluish color - Worsening of symptoms If you think you have an emergency, call for emergency medical services right away. As taken from [facility] Scripts Azithromycin (AZITHROMYCIN TABLET) 250 Mg Tablet 1 PKG PO UD for 5 Days, #6 TAB 0 Refills 2 the first day followed by 1 for days 2-5 Prov: RAVEN DUMONT APRN 07/13/20 Albuterol Sulfate (PROAIR HFA INHALER) 8.5 Gm Hfa.aer.ad 1 PUFF INH PRN Q6HRS PRN for SHORTNESS OF BREATH, #1 INHALER 0 Refills Prov: RAVEN DUMONT APRN 07/13/20 Methylprednisolone (MEDROL) 4 Mg Tab.ds.pk 1 PKG PO UD, #1 PKG Prov: RAVEN DUMONT APRN 07/13/20 RAVEN DUMONT APRN Jul 13, 2020 18:15
[2020-07-13 18:58] LABS: BASO % 1 % (0-3); EOS % 0 % (0-3); HEMATOCRIT 36.4 % (36.0-47.0); HEMOGLOBIN 11.7 g/dL (12.0-15.5); LYMPH # 2.1 x10^3/uL (1.0-4.8); LYMPH % 44 % (24-48); MEAN CORPUSCULAR HEMOGLOBIN 28 pg (25-35); MEAN CORPUSCULAR HGB CONC 32 g/dL (31-37); MEAN CORPUSCULAR VOLUME 86 fL (79-100); MONO # 0.5 x10^3/uL (0.0-1.1); MONO % 11 % (0-9); NEUT % 43 % (31-73); PLATELET COUNT 126 x10^3/uL (140-400); RED BLOOD COUNT 4.24 x10^6/uL (3.50-5.40); WHITE BLOOD COUNT 4.7 x10^3/uL (4.0-11.0)
[2020-07-13 19:14] LABS: CALCIUM 8.8 mg/dL (8.5-10.1); CREATININE 0.7 mg/dL (0.6-1.0); GFR 99.8; POTASSIUM 3.3 mmol/L (3.5-5.1)
[2020-07-13 19:20] LABS: ALBUMIN 3.1 g/dL (3.4-5.0); ALBUMIN/GLOBULIN RATIO 0.7 (1.0-1.7); TOTAL BILIRUBIN 0.2 mg/dL (0.2-1.0); TOTAL PROTEIN 7.7 g/dL (6.4-8.2)
--- NOTE | 2020-07-13 20:15 | RAD ---
EXAM: CHEST 1 VIEW History: Shortness of breath, cough COMPARISON: 02/09/2019 TECHNIQUE: Single portable radiograph of the chest FINDINGS: The cardiac silhouette is unremarkable. Mild prominent bilateral interstitial lung markings. Mild prominent bilateral interstitial lung markings likely mild congestive changes or interstitial infiltrates. IMPRESSION: Mild prominent bilateral interstitial lung markings likely mild congestive changes or interstitial infiltrates. Electronically signed by: Feliberto Bergeron MD (07/13/2020 8:12 PM) [id number]
[2020-07-13] MEDS ORDERED: AZITHRMYCN 500MG IVPB FOR OMNI 250 ML IV ONE ×2 (20:45→21:15)
[2020-07-13] MEDS ORDERED: AZIT250T6 PO (20:54)
[2020-07-13] MEDS ORDERED: METH4TAB2 PO (20:54)
[2020-07-13] MEDS ORDERED: ALBU2.5V8 INH (20:54)
[2020-07-13 21:22] VITALS: BP 174/73
--- NOTE | 2020-07-15 14:30 | NUR ---
IP: Attempted to call COVID results. No answer. Left a voicemail for a return call.
== END 2020-07-13 21:55 | disposition home or self-care (01) ==
LOC: ER 17:26
DX: U07.1 COVID-19 (principal); J18.9 Pneumonia, unspecified organism; R09.81 Nasal congestion; R05 Cough; R63.0 Anorexia; R06.02 Shortness of breath; F41.9 Anxiety disorder, unspecified; F32.9 Major depressive disorder, single episode, unspecified; J45.909 Unspecified asthma, uncomplicated; E11.40 Type 2 diabetes mellitus with diabetic neuropathy, unspecified; I25.2 Old myocardial infarction; F17.200 Nicotine dependence, unspecified, uncomplicated; E66.9 Obesity, unspecified; Z68.43 Body mass index [BMI] 50.0-59.9, adult; Z87.442 Personal history of urinary calculi; Z90.710 Acquired absence of both cervix and uterus; Z98.890 Other specified postprocedural states; Z88.0 Allergy status to penicillin; Z88.8 Allergy status to other drugs, medicaments and biological substances
CPT/HCPCS: 36415; 71045; 80053; 83880; 84484; 85025; 93005; 96365; 96375; 99285; J0456; J2930; U0003; C9803

== ENCOUNTER 2021-05-09 17:57 | Emergency (ER) | payer MEDICARE ==
[~2021-05-09] VITALS: Ht 162.6 cm; Wt 104.5 kg
[~2021-05-09 17:57] MED LIST changes: +AZIT250T6 PO; +METH4TAB2 PO
[2021-05-09] MEDS ORDERED: MORPHINE SULFATE 4 MG/ML INJ. IVP ONE (18:45)
[2021-05-09] MEDS ORDERED: ONDANSETRON PF 4 MG/2 ML VIAL. IVP ONE (18:45)
--- NOTE | 2021-05-09 18:55 | PHYS DOC ---
Past Medical History Past Medical History: Anxiety, Asthma, Depression, Diabetes-Type II, Kidney Stone, [place] Additional Past Medical Histor: paranoia, obesity, phobias, neuropathy Past Surgical History: Hysterectomy, Other Additional Past Surgical Histo: bilat knee cart. removal, cardiac stents Smoking Status: Current Every Day Smoker Alcohol Use: None Drug Use: None General Adult EDM: Chief Complaint: ABDOMINAL PAIN HPI: HPI: Patient is a 71 year old female who presents with left-sided abdominal pain radiating to her left flank starting last night at 10 PM. Associated with dysuria beginning at the similar time. She started to complain of hematuria starting today. Also today, she began having nausea/vomiting, and had 6 episodes of nonbloody diarrhea. She is felt chilled but denies any miky fevers. She has had a kidney stone on the right in the past, this feels different. Has never had similar pain. Denies history of abdominal surgeries. Is on aspirin. No blood thinners. Reports exceedingly poor appetite since pain onset. Review of Systems: Review of Systems: Constitutional: Denies fever. Reports chills. [] Eyes: Denies change in visual acuity. [] HENT: Denies nasal congestion or sore throat. [] Respiratory: Denies cough or shortness of breath. [] Cardiovascular: Denies chest pain or edema. [] GI: D reports abdominal pain, nausea, vomiting, and diarrhea. Denies bloody stools.. [] : Reports dysuria, hematuria and left flank pain.. [] Musculoskeletal: Denies back pain or joint pain. [] Integument: Denies rash. [] Neurologic: Denies headache, focal weakness or sensory changes. [] Endocrine: Denies polyuria or polydipsia. [] Lymphatic: Denies swollen glands. [] Psychiatric: Denies depression or anxiety. [] Heart Score: C/O Chest Pain: No Risk Factors: Risk Factors: DM, Current or recent (<one month) smoker, HTN, HLP, family history of CAD, obesity. Risk Scores: Score 0 - 3: 2.5% MACE over next 6 weeks - Discharge Home Score 4 - 6: 20.3% MACE over next 6 weeks - Admit for Clinical Observation Score 7 - 10: 72.7% MACE over next 6 weeks - Early Invasive Strategies Current Medications: Current Medications Medications (Trade) Dose Ordered Sig/Rayne Start Time Stop Time Status Last Admin Dose Admin Morphine Sulfate (Morphine Sulfate) 4 mg 1X ONCE 05/09/21 18:45 05/09/21 18:46 DC Ondansetron HCl (Zofran) 4 mg 1X ONCE 05/09/21 18:45 05/09/21 18:46 DC Allergies: Allergies: Allergies Coded Allergies Type Severity Reaction Last Updated Verified BETH Inhibitors Allergy Severe throat swelling 06/22/16 Yes Penicillins Allergy Intermediate rash (per MD) 01/19/19 Yes Physical Exam: PE: Constitutional: Appears uncomfortable.. [] HENT: Normocephalic, atraumatic, bilateral external ears normal, oropharynx moist, no oral exudates, nose normal. [] Eyes: PERRLA, EOMI, [] Neck: Normal range of motion, no tenderness, supple, no stridor. [] Cardiovascular:Heart rate regular rhythm, no murmur [] Lungs & Thorax: Bilateral breath sounds clear to auscultation [] Abdomen: Obese. Soft. Tender in the left upper and lower quadrants.. [] Skin: Warm, dry, no erythema, no rash. [] Back: + left CVA tenderness. [] Extremities: No tenderness, no cyanosis, no clubbing, ROM intact, no edema. [] Neurologic: Alert and oriented X 3, normal motor function, normal sensory function, no focal deficits noted. [] Psychologic: Affect normal, judgement normal, mood normal. [] EKG: EKG: [] Radiology/Procedures: Radiology/Procedures: [] Impression: [facility] [address] [place] [address] IMAGING REPORT Signed PATIENT: KATHI MIXON MACCOUNT: [id number] : 1950 LOCATION: ER AGE: 71 SEX: F EXAM STATUS: REG ER ORD. PHYSICIAN: JESUS AGUDELO MD REASON: left sided pain radiating to flank, diarrhea, n/v, dysuria, hematuria PROCEDURE: CT ABD PELV W/ IV CONTRST ONLY Exam: CT of abdomen and pelvis with contrast INDICATION: Left-sided pain radiating to flank TECHNIQUE: Sequential axial images through the abdomen and pelvis obtained following the administration of 75 mL of Omni 300 IV contrast. Sagittal and coronal reformatted images were reconstructed from the axial data and reviewed. Exposure: One or more of the following in the visualized dose reduction te chniques were utilized for this examination: 1. Automated exposure control 2. Adjustment of the MA and/or KV according to patient size 3. Use of iterative of reconstructive technique Comparisons: None FINDINGS: Heart size is normal. No pericardial effusion. Visualized lung bases are clear. No pleural effusion. Mild diffuse hepatic steatosis. Spleen, pancreas, gallbladder and adrenals are unremarkable. There is mild left-sided hydronephrosis. Several nonobstructing left renal calculi noted. There is a 8mm obstructing calculus at the proximal left ureter. No other ureteral calculi are identified. Bladder is partially distended and not well evaluated. Uterus is absent. No abnormal adnexal mass. Large and small bowel are unremarkable. Appendix is normal. No free intra- abdominal air or fluid. No obstruction. Abdominal aorta has normal course and caliber. Abdominal vasculature is patent. No enlarged intra-abdominal lymph nodes are identified. No suspicious osseous lesions or acute fractures. IMPRESSION: 1. There is a 8 mm obstructing calculus the proximal left ureter causing mild left-sided hydronephrosis. 2. Several nonobstructing left renal calculi are also noted. 3. Mild diffuse hepatic steatosis. Electronically signed by: Liliana Mclaughlin MD (05/09/2021 9:55 PM) [facility] DICTATED and SIGNED BY: LILIANA MCLAUGHLIN MD DATE: 05/09/21 [id number] 0 Course & Med Decision Making: Course & Med Decision Making Pertinent Labs and Imaging studies reviewed. (See chart for details) Patient is 71-year-old female who presents with acute onset left-sided abdominal pain radiating to the left flank last night. Associated symptoms include dysuria, hematuria, and/V, and diarrhea. DDx includes pyelonephritis, renal abscess, kidney stone, colitis, diverticulitis. We will obtain labs, UA, and CT imaging. 1854 CT shows an 8 mm ureteral stone on the left. UA does not appear infected. No evidence of MILLY/renal insufficiency. If pain can be well controlled, feel that she could be discharged with outpatient urology follow-up. We do not have urology available at this facility, but I will give her the number for local urology practices to contact. I have asked her to call her PCP, to help facilitate this referral as well. [address] Disclaimer: Debra Disclaimer: This electronic medical record was generated, in whole or in part, using a voice recognition dictation system. Departure Departure Impression: Primary Impression: Ureterolithiasis Additional Impression: Renal colic Disposition: HOME / SELF CARE / HOMELESS Condition: STABLE Referrals: ARIAN GHOSH MD (PCP) Call tomorrow to schedule a follow-up appointment, and to help facilitate a referral to a urologist. Additional Instructions: You have a kidney stone on the left. It is 8 mm in size. At this size there is a decent chance that it may not pass on its own. For this reason you will need to follow-up with a urologist. Please call one of the follow practice locations for urology follow up. [facility] / [place] [address] [place] [address] [place], [place] [address] [place] [address] [place] [address] [facility], [address] [place] [address] Please call your PCP, because they may be able to help arrange for urology follow-up as well. For pain tylenol and ibuprofen are best used on a schedule. Please aslternate between the two. -Tylenol 1000 mg every 6 hours (do not exceed 4000 mg in one day) -Ibuprofen 400 mg every 6 hours. Take with food. Do not take for more than 1 week. For pain not controlled by the above you can take: -Oxycodone 5 mg every 4 hours as needed. This is a narcotic medication and can make you tired and impaired. Do not drive or operate machinery while taking oxycodone. It can also make you consitpated so please consider taking docusate and miralax (as directed by over the counter directions) to prevent constipation. Please try to take as little oxycodone as possible and wean yourself off as soon as you are able because it is an addictive medication. For nausea: - Zofran 4 mg every 4 hours as need. Scripts Oxycodone Hcl (OXYCODONE HCL) 5 Mg Capsule 5 MG PO PRN Q4-6HRS PRN for PAIN for 5 Days, #15 TAB 0 Refills Prov: JESUS AGUDELO MD 05/09/21 Ondansetron Hcl (ZOFRAN) 4 Mg Tablet 1 TAB PO PRN Q4HRS PRN for NAUSEA/VOMITING, #20 TAB Prov: JESUS AGUDELO MD 05/09/21 JESUS AGUDELO MD May 09, 2021 18:55
[2021-05-09 20:29] LABS: BASO # 0.2 x10^3/uL (0.0-0.2); BASO % 1 % (0-3); EOS % 0 % (0-3); HEMATOCRIT 39.9 % (36.0-47.0); HEMOGLOBIN 13.3 g/dL (12.0-15.5); LYMPH # 1.7 x10^3/uL (1.0-4.8); LYMPH % 13 % (24-48); MEAN CORPUSCULAR HEMOGLOBIN 29 pg (25-35); MEAN CORPUSCULAR HGB CONC 34 g/dL (31-37); MEAN CORPUSCULAR VOLUME 87 fL (79-100); MONO # 0.9 x10^3/uL (0.0-1.1); MONO % 7 % (0-9); NEUT # 10.4 x10^3/uL (1.8-7.7); NEUT % 79 % (31-73); PLATELET COUNT 193 x10^3/uL (140-400); RED BLOOD COUNT 4.56 x10^6/uL (3.50-5.40); RED CELL DISTRIBUTION WIDTH 15.9 % (11.5-14.5); WHITE BLOOD COUNT 13.1 x10^3/uL (4.0-11.0)
[2021-05-09 20:45] LABS: CALCIUM 9.3 mg/dL (8.5-10.1); CREATININE 0.9 mg/dL (0.6-1.0); GFR 74.5; POTASSIUM 3.8 mmol/L (3.5-5.1)
[2021-05-09 20:53] LABS: ALBUMIN 3.4 g/dL (3.4-5.0); ALBUMIN/GLOBULIN RATIO 0.7 (1.0-1.7); TOTAL BILIRUBIN 0.3 mg/dL (0.2-1.0); TOTAL PROTEIN 8.4 g/dL (6.4-8.2)
[2021-05-09] MEDS ORDERED: CONTRAST GIVEN. MC PRN (21:00)
[2021-05-09] MEDS ORDERED: IOHEXOL 300 MG/ML 100ML VIAL. IV ONE (21:30)
--- NOTE | 2021-05-09 21:57 | RAD ---
Exam: CT of abdomen and pelvis with contrast INDICATION: Left-sided pain radiating to flank TECHNIQUE: Sequential axial images through the abdomen and pelvis obtained following the administrati on of 75 mL of Omni 300 IV contrast. Sagittal and coronal reformatted images were reconstructed from the axial data and reviewed. Exposure: One or more of the following in the visualized dose reduction techniques were utilized for this examination: 1. Automated exposure control 2. Adjustment of the MA and/or KV according to patient size 3. Use of iterative of reconstructive technique Comparisons: None FINDINGS: Heart size is normal. No pericardial effusion. Visualized lung bases are clear. No pleural effusion. Mild diffuse hepatic steatosis. Spleen, pancreas, gallbladder and adrenals are unremarkable. There is mild left-sided hydronephrosis. Several nonobstructing left renal calculi noted. There is a 8mm obstructing calculus at the proximal left ureter. No other ureteral calculi are identified. Bladder is partially distended and not well evaluated. Uterus is absent. No abnormal adnexal mass. Large and small bowel are unremarkable. Appendix is normal. No free intra-abdominal air or fluid. No obstruction. Abdominal aorta has normal course and caliber. Abdominal vasculature is patent. No enlarged intra-abdominal lymph nodes are identified. No suspicious osseous lesions or acute fractures. IMPRESSION: 1. There is a 8 mm obstructing calculus the proximal left ureter causing mild left-sided hydronephro sis. 2. Several nonobstructing left renal calculi are also noted. 3. Mild diffuse hepatic steatosis. Electronically signed by: Liliana Akins MD (05/09/2021 9:55 PM) [facility]
[2021-05-09 22:07] LABS: BILIRUBIN,URINE NEGATIVE (NEG); CLARITY,URINE CLEAR; COLOR,URINE YELLOW; NITRITE,URINE NEGATIVE (NEG); PROTEIN,URINE 30 mg/dL (NEG-TRACE); UROBILINOGEN,URINE 0.2 mg/dL (0.2 mg/dL)
[2021-05-09 22:16] LABS: BACTERIA,URINE 0 /HPF (0-FEW); RBC,URINE TNTC /HPF (0-2)
[2021-05-09] MEDS ORDERED: OXYC5CAP PO (23:07)
[2021-05-09] MEDS ORDERED: ONDA4TAB7 PO (23:07)
[2021-05-09 23:30] VITALS: BP 169/89
[2021-05-10] MEDS ORDERED: oxyCODONE IR 5 MG TABLET PO ONE
== END 2021-05-09 23:30 | disposition home or self-care (01) ==
LOC: ER 17:57
DX: N13.2 Hydronephrosis with renal and ureteral calculous obstruction (principal); J45.909 Unspecified asthma, uncomplicated; E11.40 Type 2 diabetes mellitus with diabetic neuropathy, unspecified; I25.2 Old myocardial infarction; F17.200 Nicotine dependence, unspecified, uncomplicated; Z88.0 Allergy status to penicillin; Z88.8 Allergy status to other drugs, medicaments and biological substances
CPT/HCPCS: 36415; 74177; 80053; 81001; 83690; 85025; 87086; 96374; 96375; 99285; J2060; J2270; J2405; Q9967

== ENCOUNTER 2021-06-07 17:42 | Emergency (ER) | payer MEDICARE ==
[~2021-06-07] VITALS: Ht 160 cm; Wt 132.0 kg
[~2021-06-07 17:42] MED LIST changes: +OXYC5CAP PO
--- NOTE | 2021-06-07 19:09 | PHYS DOC ---
Past Medical History Past Medical History: Anxiety, Asthma, Depression, Diabetes-Type II, Kidney Stone, [place] Additional Past Medical Histor: paranoia, obesity, phobias, neuropathy Past Surgical History: Other Additional Past Surgical Histo: bilat knee cart. removal, cardiac stents Smoking Status: Former Smoker Alcohol Use: None Drug Use: None General Adult EDM: Chief Complaint: SHORTNESS OF BREATH HPI: HPI: Patient is a 71 year old female who presents with 3-4 days of cough, nasal congestion, shortness of breath. Is not vaccinated against Covid. Denies Covid contacts. Has had slightly poor appetite and some nausea. No vomiting. No change in bowel movements. Denies chest pain. Patient was diagnosed with an 8 mm left-sided ureteral stone on 05/09. She has followed up with her PCP several times, but has not followed up with the urologist, despite her PCPs repeated request. She has had 3 scripts for oxycodone since then. Had been taking oxycodone 2.5 mg every 6 hours, but states she has not had any since Saturday. States that her pain improved vastly on Saturday and has not had pain since. Denies any hematuria, dysuria, urgency, or frequency. States that she has had hot flashes every day for the last 4 years, and this has not recently changed. Denies any new fever. She is currently homeless, but is living on the floor of an abandoned apartment. Review of Systems: Review of Systems: Constitutional: Reports chronic hot flashes. Denies chills. [] Eyes: Denies change in visual acuity. [] HENT: Reports nasal congestion and mild sore throat. [] Respiratory: reports cough and shortness of. [] Cardiovascular: Denies chest pain or edema. [] GI: Denies abdominal pain, nausea, vomiting, bloody stools or diarrhea. [] : Denies dysuria, urgency, frequency. [] Musculoskeletal: Denies back pain or joint pain. [] Integument: Denies rash. [] Neurologic: Denies headache, focal weakness or sensory changes. [] Endocrine: Denies polyuria or polydipsia. [] Lymphatic: Denies swollen glands. [] Psychiatric: Denies depression or anxiety. [] Heart Score: C/O Chest Pain: No Risk Factors: Risk Factors: DM, Current or recent (<one month) smoker, HTN, HLP, family histo ry of CAD, obesity. Risk Scores: Score 0 - 3: 2.5% MACE over next 6 weeks - Discharge Home Score 4 - 6: 20.3% MACE over next 6 weeks - Admit for Clinical Observation Score 7 - 10: 72.7% MACE over next 6 weeks - Early Invasive Strategies Allergies: Allergies: Allergies Coded Allergies Type Severity Reaction Last Updated Verified BETH Inhibitors Allergy Severe throat swelling 06/07/21 Yes Penicillins Allergy Intermediate rash (per MD) 06/07/21 Yes Physical Exam: PE: Constitutional: Obese, resting in bed, no apparent distress.. [] HENT: Normocephalic, atraumatic, Eyes: PERRLA, EOMI, Neck: Normal range of motion, no tenderness, supple, no stridor. [] Cardiovascular:Heart rate regular rhythm, no murmur [] Lungs & Thorax: Bilateral breath sounds clear to auscultation. Normal work of breathing. Satting 100% on room air. [] Abdomen: No appreciable tenderness. soft. Skin: Warm, dry, no erythema, no rash. [] Back: No tenderness, no CVA tenderness. [] Extremities: No tenderness, no cyanosis, no clubbing, ROM intact, no edema. [] Neurologic: Alert and oriented X 3, normal motor function, normal sensory function, no focal deficits noted. [] Psychologic: Affect normal, judgement normal, mood normal. [] Current Patient Data: Vital Signs: Vital Signs Date Time Temp Pulse Resp B/P (MAP) Pulse Ox O2 Delivery O2 Flow Rate FiO2 06/07/21 18:39 98.4 18 15 213/84 (127) 100 Room Air 98.4 EKG: EKG: Sinus rhythm. Rate 78. QTc 462. Left axis deviation. Inferior T wave inversions. PAC present. No ST elevation or depression. [] Radiology/Procedures: Radiology/Procedures: [] Impression: [facility] [address] [place] [address] IMAGING REPORT Signed PATIENT: KATHI MIXON MACCOUNT: [id number] : 1950 LOCATION: ER AGE: 71 SEX: F EXAM STATUS: REG ER ORD. PHYSICIAN: JESUS AGUDELO MD REASON: shortness of breath, cough, congestion PROCEDURE: CHEST AP ONLY XR CHEST 1V History: Reason: shortness of breath, cough, congestion / Spl. Instructions: / History: Comparison: July 13, 2020 Findings: Mild diffuse reticular interstitial thickening. No pleural effusion. No pneumothorax. Unchanged heart size. Impression: 1. Unchanged mild diffuse reticular interstitial thickening, may represent chronic interstitial changes although superimposed pulmonary edema or infection is possible. Electronically signed by: Anant Lane DO (06/07/2021 7:44 PM) [facility] DICTATED and SIGNED BY: ANANT LANE DO DATE: 06/07/21 [id number] 0 Course & Med Decision Making: Course & Med Decision Making Pertinent Labs and Imaging studies reviewed. (See chart for details) Patient is 71-year-old female who presents with 3 days of cough, nasal congestion, and shortness of breath. She is also been dealing with a an 8 mm left-sided ureteral stone, but pain recently subsided. She has not seen a urologist despite PCP referral. On arrival is afebrile, vital signs normal aside from hypertension. Well-appearing on examination with clear lung sounds and no abdominal or flank tenderness. We will check chest x-ray, Covid, CBC, CMP, UA, troponin. 190 Rapid Covid negative. EKG with T wave inversion inferiorly and left axis deviation. No other acute ischemic changes noted. Troponin is negative. UA does not appear infected, low suspicion for infected kidney stone. Mild leukocytosis on labs. Chest x-ray with some interstitial thickening. Given symptoms we will treat for pneumonia. Given comorbidities and penicillin allergy, will treat levaquin. [id number] Debra Disclaimer: Debra Disclaimer: This electronic medical record was generated, in whole or in part, using a voice recognition dictation system. Departure Departure Impression: Primary Impression: Pneumonia Disposition: HOME / SELF CARE / HOMELESS Condition: STABLE Referrals: ARIAN GHOSH MD (PCP) Please follow-up with your PCP after you have completed course of antibiotics. Additional Instructions: Your chest x-ray showed a potential pneumonia. Your rapid Covid test was negative. The more accurate follow-up Covid test will result in approximately 24 hours. Please self isolate until you know the results of the second Covid test. I want to treat your pneumonia with an antibiotic called Levaquin. Please take the entire prescription. Please follow-up with your PCP after you complete your prescription. Please consider following up with urologist for your known kidney stone. You can always return to the emergency department if your symptoms worsen. Scripts Levofloxacin (LEVOFLOXACIN) 750 Mg Tablet 1 TAB PO DAILY for 7 Days, #7 TAB 0 Refills Prov: JESUS AGUDELO MD 06/07/21 JESUS AGUDELO MD Jun 07, 2021 19:08
[2021-06-07 19:29] LABS: BASO # 0.1 x10^3/uL (0.0-0.2); BASO % 1 % (0-3); EOS # 0.3 x10^3/uL (0.0-0.7); EOS % 3 % (0-3); HEMOGLOBIN 12.5 g/dL (12.0-15.5); LYMPH # 2.7 x10^3/uL (1.0-4.8); LYMPH % 24 % (24-48); MEAN CORPUSCULAR HEMOGLOBIN 29 pg (25-35); MEAN CORPUSCULAR HGB CONC 33 g/dL (31-37); MEAN CORPUSCULAR VOLUME 88 fL (79-100); MONO # 0.7 x10^3/uL (0.0-1.1); MONO % 6 % (0-9); NEUT # 7.7 x10^3/uL (1.8-7.7); NEUT % 66 % (31-73); PLATELET COUNT 219 x10^3/uL (140-400); RED BLOOD COUNT 4.33 x10^6/uL (3.50-5.40); WHITE BLOOD COUNT 11.7 x10^3/uL (4.0-11.0)
[2021-06-07 19:46] LABS: CALCIUM 8.8 mg/dL (8.5-10.1); CREATININE 0.8 mg/dL (0.6-1.0); GFR 85.3; POTASSIUM 3.6 mmol/L (3.5-5.1)
--- NOTE | 2021-06-07 19:46 | RAD ---
XR CHEST 1V History: Reason: shortness of breath, cough, congestion / Spl. Instructions: / History: Comparison: July 13, 2020 Findings: Mild diffuse reticular interstitial thickening. No pleural effusion. No pneumothorax. Unchanged heart size. Impression: 1. Unchanged mild diffuse reticular interstitial thickening, may represent chronic interstitial walker ges although superimposed pulmonary edema or infection is possible. Electronically signed by: Anant Lane DO (06/07/2021 7:44 PM) [facility]
[2021-06-07 19:52] LABS: ALBUMIN 3.4 g/dL (3.4-5.0); ALBUMIN/GLOBULIN RATIO 0.8 (1.0-1.7); TOTAL BILIRUBIN 0.2 mg/dL (0.2-1.0); TOTAL PROTEIN 7.5 g/dL (6.4-8.2)
[2021-06-07 20:52] VITALS: BP 214/71
[2021-06-07 21:08] LABS: BILIRUBIN,URINE NEGATIVE (NEG); CLARITY,URINE CLOUDY; COLOR,URINE YELLOW; NITRITE,URINE NEGATIVE (NEG); PH,URINE 6.5 (<5.0-8.0); PROTEIN,URINE NEGATIVE (NEG-TRACE); UROBILINOGEN,URINE 0.2 mg/dL (0.2 mg/dL)
[2021-06-07 21:16] LABS: RBC,URINE 0 /HPF (0-2); WBC,URINE OCC /HPF (0-4)
[2021-06-07 21:17] LABS: BACTERIA,URINE FEW /HPF (0-FEW)
[2021-06-07] MEDS ORDERED: LEVO750T5 PO (21:28)
--- NOTE | 2021-06-08 06:34 | EKG ---
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
--- NOTE | 2021-06-08 15:35 | NUR ---
IP: Attempted to notify patient of negative COVID19 test result. Recording states this number is not in service.
== END 2021-06-07 22:10 | disposition home or self-care (01) ==
LOC: ER 17:42
DX: J18.9 Pneumonia, unspecified organism (principal); Z20.822 Contact with and (suspected) exposure to COVID-19; J45.909 Unspecified asthma, uncomplicated; E11.40 Type 2 diabetes mellitus with diabetic neuropathy, unspecified; I25.2 Old myocardial infarction; Z87.891 Personal history of nicotine dependence; Z88.0 Allergy status to penicillin; Z88.8 Allergy status to other drugs, medicaments and biological substances
CPT/HCPCS: 36415; 71045; 80053; 81001; 84484; 85025; 87426; 93005; 99285; U0003; U0005